=== PATIENT | male | born 1975 | race Caucasian/White ===

== ENCOUNTER 2019-05-14 22:16 | Inpatient (IN) | payer OTHER ==
[2019-05-15] MEDS ORDERED: HYDROCODONE/APAP (5/325) TAB PO
[2019-05-15] MEDS ORDERED: ONDANSETRON 4 MG INJ IV
[2019-05-15] MEDS ORDERED: ACETAMINOPHEN 325 MG TAB PO
[2019-05-15] MEDS ORDERED: ALBUTEROL/IPRATROPIUM (NEB) 3 ML AMP HHN
[2019-05-15] MEDS ORDERED: NACL 0.9% 3 ML SYG IV
[2019-05-15] MEDS ORDERED: HALOPERIDOL 5 MG INJ IM (00:30)
[2019-05-15 01:31] LABS: LACTIC ACID 0.9 mmol/L (0.5-2.0)
[2019-05-15 03:20] LABS: ADD MAN DIFF? NO
[2019-05-15 03:23] LABS: WHITE BLOOD COUNT 12.4 10^3/ul (4.8-10.8)
[2019-05-15 03:23] LABS: BASOPHIL # 0.1 10^3/ul (0.0-0.1); BASOPHILS % 0.4 % (0.0-2.0); EOSINOPHILS # 0.3 10^3/ul (0.0-0.5); EOSINOPHILS % 2.4 % (0.0-7.0); HEMOGLOBIN 12.8 g/dl (14.0-18.0); LYMPHOCYTES # 1.6 10^3/ul (0.8-2.9); LYMPHOCYTES % 13.2 % (15.0-51.0); MEAN CORPUSCULAR HEMOGLOBIN 29.8 pg (29.0-33.0); MEAN CORPUSCULAR HGB CONC 32.8 g/dl (32.0-37.0); MEAN CORPUSCULAR VOLUME 90.7 fl (82.0-101.0); MEAN PLATELET VOLUME 9.2 fl (7.4-10.4); MONOCYTE # 1.3 10^3/ul (0.3-0.9); MONOCYTES % 10.8 % (0.0-11.0); NEUTROPHILS % 72.8 % (39.0-77.0); PLATELET COUNT 328 10^3/UL (140-415); RED CELL DISTRIBUTION WIDTH 13.1 % (11.5-14.5)
[2019-05-15 03:34] LABS: HEMOGLOBIN A1C 5.4 % (0-5.9)
[2019-05-15 03:40] LABS: LACTIC ACID 0.9 mmol/L (0.5-2.0)
[2019-05-15 03:48] LABS: ALANINE AMINOTRANSFERASE 22 IU/L (13-69); ALBUMIN 2.8 g/dl (3.3-4.9); ALBUMIN/GLOBULIN RATIO 1.03; ALKALINE PHOSPHATASE 68 IU/L (42-121); ANION GAP 2 (5-13); ASPARTATE AMINO TRANSFERASE 21 IU/L (15-46); BILIRUBIN,INDIRECT 0.8 mg/dl (0-1.1); BILIRUBIN,TOTAL 0.8 mg/dl (0.2-1.3); BLOOD UREA NITROGEN 12 mg/dl (7-20); CALCIUM 8.3 mg/dl (8.4-10.2); CARBON DIOXIDE 27 mmol/L (21-31); CHLORIDE 104 mmol/L (97-110); CHOL/HDL RATIO 2.8 RATIO; CHOLESTEROL 104 mg/dl (100-200); CREATININE 0.75 mg/dl (0.61-1.24); Estimated GFR > 60 mL/min (>60); GLUCOSE 109 mg/dl (70-220); HDL CHOLESTEROL 36 mg/dl (27-67); LDL CHOLESTEROL,CALCULATED 55 mg/dl; MAGNESIUM 2.1 mg/dl (1.7-2.5); POTASSIUM 3.8 mmol/L (3.5-5.1); SODIUM 133 mmol/L (135-144); TOTAL PROTEIN 5.5 g/dl (6.1-8.1); TRIGLYCERIDES 64 mg/dl (0-149)
[2019-05-15 04:18] LABS: THYROID STIMULATING HORMONE 0.582 MIU/L (0.465-4.680)
[2019-05-15] MEDS ORDERED: VANCOMYCIN IV PER PHARMACY XX (08:00)
[2019-05-15] MEDS: CEFEPIME 1GM/50 ML (PMX) 50 ML IVPB (09:39)
[2019-05-15] MEDS: HEPARIN 5,000 UNIT/1 ML VIAL SC ×2 (09:40→21:56)
[2019-05-15] MEDS: VANCOMYCIN 1.5 GM/NS 250 ML 250 ML IVPB (11:27)
[2019-05-15] MEDS: CEFTRIAXONE 1 GM/50 ML (PMX) 50 ML IVPB (16:45)
[2019-05-15] MEDS: HYDROCODONE/APAP (5/325) TAB PO (16:50)
[2019-05-15] MEDS: VANCOMYCIN 1 GM 250 ML IVPB (21:54)
[2019-05-16] MEDS: HYDROCODONE/APAP (5/325) TAB PO (03:14)
[2019-05-16] MEDS: VANCOMYCIN 1 GM 250 ML IVPB ×2 (09:32→21:26)
[2019-05-16] MEDS: HEPARIN 5,000 UNIT/1 ML VIAL SC ×2 (09:37→21:33)
[2019-05-16 10:03] LABS: ADD MAN DIFF? NO
[2019-05-16 10:04] LABS: BASOPHIL # 0.1 10^3/ul (0.0-0.1); BASOPHILS % 0.7 % (0.0-2.0); EOSINOPHILS # 0.2 10^3/ul (0.0-0.5); EOSINOPHILS % 2.1 % (0.0-7.0); HEMATOCRIT 38.6 % (42.0-52.0); HEMOGLOBIN 12.6 g/dl (14.0-18.0); LYMPHOCYTES # 1.4 10^3/ul (0.8-2.9); LYMPHOCYTES % 12.8 % (15.0-51.0); MEAN CORPUSCULAR HGB CONC 32.6 g/dl (32.0-37.0); MEAN CORPUSCULAR VOLUME 91.9 fl (82.0-101.0); MEAN PLATELET VOLUME 9.1 fl (7.4-10.4); MONOCYTE # 1.1 10^3/ul (0.3-0.9); NEUTROPHIL # 8.1 10^3/ul (1.6-7.5); PLATELET COUNT 353 10^3/UL (140-415); RED CELL DISTRIBUTION WIDTH 13.2 % (11.5-14.5)
[2019-05-16 10:25] LABS: ANION GAP 3 (5-13); BLOOD UREA NITROGEN 10 mg/dl (7-20); CALCIUM 8.5 mg/dl (8.4-10.2); CARBON DIOXIDE 30 mmol/L (21-31); CHLORIDE 104 mmol/L (97-110); CREATININE 0.76 mg/dl (0.61-1.24); Estimated GFR > 60 mL/min (>60); GLUCOSE 88 mg/dl (70-220); POTASSIUM 4.3 mmol/L (3.5-5.1); SODIUM 137 mmol/L (135-144)
[2019-05-16 16:24] LABS: C-REACTIVE PROTEIN 6.2 mg/dl (0.0-0.9)
[2019-05-16] MEDS: CEFTRIAXONE 1 GM/50 ML (PMX) 50 ML IVPB (16:49)
[2019-05-16 16:50] LABS: ERYTHROCYTE SEDIMENTATION RATE 18 mm/Hr (0-15)
[2019-05-16 21:16] LABS: VANCOMYCIN,TROUGH 7.9 ug/ml (10.0-20.0)
[2019-05-17 05:31] LABS: ADD MAN DIFF? NO
[2019-05-17 05:39] LABS: BASOPHIL # 0.1 10^3/ul (0.0-0.1); EOSINOPHILS # 0.3 10^3/ul (0.0-0.5); EOSINOPHILS % 4.1 % (0.0-7.0); HEMATOCRIT 39.2 % (42.0-52.0); HEMOGLOBIN 12.7 g/dl (14.0-18.0); LYMPHOCYTES # 2.1 10^3/ul (0.8-2.9); LYMPHOCYTES % 25.8 % (15.0-51.0); MEAN CORPUSCULAR HEMOGLOBIN 29.5 pg (29.0-33.0); MEAN CORPUSCULAR HGB CONC 32.4 g/dl (32.0-37.0); MEAN CORPUSCULAR VOLUME 91.2 fl (82.0-101.0); MONOCYTE # 0.9 10^3/ul (0.3-0.9); MONOCYTES % 11.3 % (0.0-11.0); NEUTROPHIL # 4.6 10^3/ul (1.6-7.5); NEUTROPHILS % 57.7 % (39.0-77.0); PLATELET COUNT 404 10^3/UL (140-415); RED CELL DISTRIBUTION WIDTH 13.2 % (11.5-14.5)
[2019-05-17 06:16] LABS: ANION GAP 5 (5-13); BLOOD UREA NITROGEN 13 mg/dl (7-20); CALCIUM 8.8 mg/dl (8.4-10.2); CARBON DIOXIDE 28 mmol/L (21-31); CHLORIDE 103 mmol/L (97-110); CREATININE 0.81 mg/dl (0.61-1.24); Estimated GFR > 60 mL/min (>60); GLUCOSE 104 mg/dl (70-220); POTASSIUM 4.3 mmol/L (3.5-5.1); SODIUM 136 mmol/L (135-144)
[2019-05-17] MEDS ORDERED: VANCOMYCIN 1.25 GM/NS 250 ML 250 ML IVPB (10:00)
== END 2019-05-17 10:55 | disposition left against medical advice (07) | DRG 603 ==
LOC: 2NE 22:16
PROVIDERS: Internal Medicine
DX: L03.116 Cellulitis of left lower limb (principal); L02.416 Cutaneous abscess of left lower limb; E03.9 Hypothyroidism, unspecified; F31.9 Bipolar disorder, unspecified; F99 Mental disorder, not otherwise specified; F17.200 Nicotine dependence, unspecified, uncomplicated; F15.10 Other stimulant abuse, uncomplicated; F12.10 Cannabis abuse, uncomplicated
CPT/HCPCS: 73562; 80048; 80053; 80061; 80202; 83036; 83605; 83735; 84100; 84443; 85025; 85651; 86140; 87040-91